=== PATIENT | male | born 1980 | race Caucasian/White ===

== ENCOUNTER 2021-10-28 12:48 | Emergency (ER) | payer MEDICAID, SELFPAY ==
--- NOTE | 2021-10-28 12:45 | RT.EKG_ITS ---
APPROVED REPORT Exam: Resting ECG Reason for Exam: chest pain Patient Location: E HR:67 bpm ECG Measurements Heart Rate 67 AXIS IA 140 P 12 QRSd 88 QRS 45 QT 540 T 11 QTc 570 Conclusion Sinus rhythm...normal P axis, V-rate 60- 99 Prolonged QT interval...QTc >500mS. Sinus. Normal axis. Prolonged QT. No STEMI. I have reviewed and interpreted ECG and agree with software generated interpretation.
[2021-10-28 12:53] VITALS: BP 135/68; PULSE 70; RESP 16; TEMP 36.9; O2SAT 95
--- NOTE | 2021-10-28 13:30 | DI.RAD_ITS ---
Exam(s) XR CHEST 2V PA LATERAL EXAM: XR CHEST 2V PA LATERAL CLINICAL HISTORY: substernal chest pain, r/o acute disease. TECHNIQUE: 2D digital imaging was performed. COMPARISON: No exams were available for comparison FINDINGS: 2 views: Heart size is normal. The mediastinum is not widened. Lungs are clear. No infiltrates nor pleural effusions. IMPRESSION: No acute pulmonary findings. DATA REPOSITORY: RADIATION DOSE DELIVERED:
[2021-10-28] MEDS: Normal Saline 1,000 ML 1000 ML IV (13:33)
[2021-10-28 13:38] LABS: Abs Immature Grans 0.06 10^3/uL (0.0-0.06); Absolute Basophil Count 0.03 10^3/uL (0.0-0.2); Absolute Eosinophil Count 0.03 10^3/uL (0.0-0.7); Absolute Neutrophil Count 12.49 10^3/uL (1.2-6.7); Basophils % 0.2; Eosinophils % 0.2; HCT 45.8 % (40.0-50.0); HGB 14.9 g/dL (13.5-17.5); Immature Grans % 0.4; Lymphocytes % 12.8; MCH 28.5 pg (27.0-33.0); MCHC 32.5 % (32.0-36.0); MCV 88 fL (80-95); MPV 10.5 fL (8.0-11.0); Monocytes % 5.8; Neutrophils % 80.6; Platelet Count 201 10^3/uL (130-400); RBC 5.23 10^6/uL (4.36-5.78); RDW 12.2 % (11.8-14.1); RDW-SD 39.1 fL
[2021-10-28 13:39] LABS: Absolute Lymphocyte Count 1.98 10^3/uL (1.2-3.4)
[2021-10-28] MEDS: Famotidine 20 MG/2 ML VIAL IVP (13:41)
[2021-10-28] MEDS: Sucralfate 1 GM TAB PO (13:41)
[2021-10-28 13:54] LABS: ALT 31 U/L (16-63); AST 25 U/L (15-37); Albumin 3.6 g/dL (3.4-5.0); Alkaline Phosphatase 93 U/L (46-116); Anion Gap 6.5 mmol/L (3-11); BUN 12 mg/dL (7-18); Bilirubin, Total 0.5 mg/dL (0.2-1.0); CO2 35.5 mmol/L (21.0-32.0); CREATININE 1.1 mg/dL (0.70-1.30); Calcium 9.5 mg/dL (8.5-10.1); Chloride 96 mmol/L (98-107); Glucose 179 mg/dL (74-106); Lipase 33 U/L (73-393); Magnesium 2.5 mg/dL (1.8-2.4); Potassium 3.1 mmol/L (3.5-5.1); Sodium 138 mmol/L (136-145); Total Protein 7.8 g/dL (6.4-8.2); Troponin I < 50 ng/L (<or=60)
--- NOTE | 2021-10-28 14:06 | ED.GENADUL_ITS ---
Discharge Plan Disposition Patient Disposition: HOME Condition: Improving Discharge Details Clinical Impression: Chest pain, Vomiting Primary Care Provider: Unknown,Unknown ED Provider: Charisma Bruce Home Meds and New Rx's Prescriptions: New famotidine [Pepcid] 20 mg tablet 20 mg PO DAILY Qty: 14 0RF promethazine 25 mg tablet 25 mg PO TID PRN (Reason: nausea and vomiting) Qty: 7 0RF sucralfate [Carafate] 1 gram tablet 1 gm PO QACHS Qty: 14 0RF Continued ibuprofen 800 MG tablet 800 mg PO Q8H Qty: 30 0RF methadone 5 mg/0.5 mL Syringe 110 mg PO DAILY Discharge Instructions Instructions: Chest Pain (ED), Acute Nausea and Vomiting (ED) Additional Instructions: Your lab work, EKG and imaging today is reassuring and shows no evidence of acute concerning or significant findings. You are being sent home with Phenergan to take as needed and directed for nausea and vomiting. Prescriptions for Phenergan for nausea and Carafate and Pepcid for pain have been sent electronically to your pharmacy. Follow-up with your primary care doctor in 1 week for reevaluation and for consideration for outpatient stress test if your symptoms do not improve or worsen and if indicated. Return to the emergency department with any worsening or new concerning symptoms. 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 Re ports that the vomitus has been blood-tinged and denies any large amounts of von blood. Vitals within normal limits. EKG on arrival notes a rate of 67, sinus, prolonged QT at 570, no STEMI and nondiagnostic. Patient appears comfortable and nontoxic. He has mild reproducible anterior chest wall tenderness. Lungs are clear bilaterally. Abdomen soft and nontender. Differential diagnose inclu cat gastritis, gastritis, esophagitis, GERD, PUD. History and presentation does not appear consistent with esophageal varices, boerhaave's syndrome, dissection, pancreatitis, cholecystitis, ACS, PE. PERC negative. We will place an IV, bolus IV fluids, screening labs, x-ray and give Pepcid, Carafate, Phenergan and GI cocktail and reassess. Labs and imaging reviewed. White blood cell count 15 which may be stress response in the setting of vomiting. Potassium 3.1 which was repleted. Troponin negative. Lipase within normal limits. As his chest pain has been present since yesterday and his presentation appears most likely consistent with a GI etiology, do not see an indication for repeat troponin. Chest x-ray negative. Patient reassessed and he is pain and nausea free and feels comfortable going home. We will send with Phenergan for home. Prescriptions for Phenergan, Pepcid and Carafate sent electronically to his pharmacy. Advised to follow up with the primary care doctor for re-evaluation. Usual and customary return precautions given prior to discharge. Medical Records Medical records reviewed: Yes I reviewed the patient's medical records. Imaging Data Radiologic Study: Radiologist's impression: XR Chest Exam date and time: 10/28/2021 1:48 PM Age: 40 years old Clinical indication: Other: Substernal chest pain, R/O acute disease TECHNIQUE: Imaging protocol: XR of the chest. Views: 2 views. COMPARISON: No relevant prior studies available. FINDINGS: Airway: Patent Lungs: Low lung volumes causes crowding of the bronchovascular structures. No acute interstitial or airspace disease. Pleural spaces: Unremarkable. No pleural effusion. No pneumothorax. Heart/Mediastinum: Unremarkable. No cardiomegaly. Bones/joints: No acute skeletal abnormality or aggressive osseous lesion.? IMPRESSION: No acute thoracic pathology. Lab Data Lab results reviewed: Yes I reviewed the patient's lab results. Labs: Laboratory Tests Range/Units 10/28/21 10/28/21 13:20 13:20 WBC (4.4-10.8) 10^3/uL 15.50 H RBC (4.36-5.78) 10^6/uL 5.23 Hgb (13.5-17.5) g/dL 14.9 Hct (40.0-50.0) % 45.8 MCV (80-95) fL 88 MCH (27.0-33.0) pg 28.5 MCHC (32.0-36.0) % 32.5 RDW (11.8-14.1) % 12.2 Plt Count (130-400) 10^3/uL 201 MPV (8.0-11.0) fL 10.5 Immature Gran % 0.4 Neutrophils % 80.6 Lymphocytes % 12.8 Monocytes % 5.8 Eosinophils % 0.2 Basophils % 0.2 Nucleated RBC % (0.0-0.3) % 0.0 Absolute Neutrophils (1.2-6.7) 10^3/uL 12.49 H Absolute Lymphocytes (1.2-3.4) 10^3/uL 1.98 Absolute Monocytes (0.1-0.8) 10^3/uL 0.90 H Absolute Eosinophils (0.0-0.7) 10^3/uL 0.03 Absolute Basophils (0.0-0.2) 10^3/uL 0.03 Sodium (136-145) mmol/L 138 Potassium (3.5-5.1) mmol/L 3.1 L Chloride (98-107) mmol/L 96 L Carbon Dioxide (21.0-32.0) mmol/L 35.5 H Anion Gap (3-11) mmol/L 6.5 BUN (7-18) mg/dL 12 Creatinine (0.70-1.30) mg/dL 1.1 Estimated GFR/1.73 m2 (mL/min/1.73m2) >= 60.00 Glucose (74-106) mg/dL 179 H Calcium (8.5-10.1) mg/dL 9.5 Magnesium (1.8-2.4) mg/dL 2.5 H Total Bilirubin (0.2-1.0) mg/dL 0.5 AST (15-37) U/L 25 ALT (16-63) U/L 31 Alkaline Phosphatase (46-116) U/L 93 Troponin I (<or=60) ng/L < 50 Total Protein (6.4-8.2) g/dL 7.8 Albumin (3.4-5.0) g/dL 3.6 Lipase (73-393) U/L 33 ECG Data Attestation: I personally reviewed and interpreted this ECG (s) as follows: Interpretation: rate of 67, normal axis, no STEMI. HPI General Mode of arrival: ambulatory . Date/Time Provider Initiated Documentation: 10/28/21 12:51 . Limitations to Documentation: no limitations . Information obtained by: patient . HPI Narrative: Patient is a 40-year-old male patient of former opiate abuse on methadone, gerd, and migraines presents to ED with complaint of chest pain and vomiting since yesterday. Patient states he was walking around when he developed substernal sharp chest pain. He states the pain is currently 6/10 and denies any radiation, associated shortness of breath or dizziness. He states after the chest pain started he developed vomiting which she states is in the mucous and food. He states he has vomited approximately 30 times since yesterday, the last time occurring 3 hours ago. He states he has occasionally noticed blood-tinged vomitus but denies any large amounts of von blood. He states he took Tums last night and this morning without relief. He denies any aggravating or alleviating symptoms but states he would normally does not eat much throughout the day. He states he has not eaten much since yesterday due to concern for worsening pain. He denies any fever, coughing, abdominal pain, diarrhea, recent antibiotic or recent known sick contacts. Related Data Home Medications Medication Instructions Recorded Confirmed ibuprofen 800 mg tablet 800 mg PO Q8H ##30 03/26/13 10/28/21 famotidine 20 mg tablet (Pepcid) 20 mg PO DAILY #14 tabs 10/28/21 methadone 5 mg/0.5 mL oral syringe 110 mg PO DAILY 10/28/21 10/28/21 (FOR ORAL USE ONLY) promethazine 25 mg tablet 25 mg PO TID PRN nausea and 10/28/21 vomiting #7 tabs sucralfate 1 gram tablet (Carafate) 1 gm PO QACHS #14 tabs 10/28/21 Previous Rx's Medication Instructions Recorded ibuprofen 800 mg tablet 800 mg PO Q8H ##30 03/26/13 famotidine 20 mg tablet (Pepcid) 20 mg PO DAILY #14 tabs 10/28/21 promethazine 25 mg tablet 25 mg PO TID PRN nausea and 10/28/21 vomiting #7 tabs sucralfate 1 gram tablet (Carafate) 1 gm PO QACHS #14 tabs 10/28/21 Allergies Allergy/AdvReac Type Severity Reaction Status Date / Time No Known Allergies Allergy Unverified 10/28/21 13:05 General Stated Complaint: Chest Pain ALEJANDRO: 2 Review of Systems All systems reviewed & are unremarkable except as noted in HPI and below Constitutional Constitutional: Denies chills, Denies excessive sweating, Denies fatigue, Denies fever(s), Denies weakness and Denies weight loss Eyes Eyes: Reports system reviewed and no additional complaints, except as documented and Denies blurry vision ENT Ears, Nose, Mouth, and Throat: Denies vertigo, Denies dizziness, Denies otalgia, Denies nasal congestion, Denies sore throat and Denies throat swelling Cardiovascular Cardiovascular: Reports chest pain, Denies syncope, Denies rapid heart rate and Denies dyspnea Respiratory Respiratory: Denies chest congestion, Denies cough, Denies pain on inspiration and Denies dyspnea Gastrointestinal Gastrointestinal: Denies abdominal pain, Denies diarrhea, Reports nausea and Reports vomiting Genitourinary Genitourinary: Denies hematuria, Denies dysuria and Denies flank pain Musculoskeletal Musculoskeletal: Denies back pain and Denies joint swelling Integumentary/Breasts Skin/Breast: Denies lesions and Denies rash Neurologic Neurologic: Denies behavioral changes, Denies confusion, Denies vertigo, Denies dizziness, Denies syncope, Denies localized weakness and Denies weakness Psychiatric Psychiatric: Denies behavioral changes, Denies confusion and Denies depression Endocrine Endocrine: Denies excessive sweating and Denies fatigue Hematologic/Lymphatic Hematologic/Lymphatic: Denies easy bruising and Denies lymphadenopathy Allergic/Immunologic Allergic/Immunologic: Denies throat swelling PFSH All Active Problems (Updated 10/28/21 @ 15:21 by Charisma Bruce DO) Chest pain (Acute) Vomiting (Acute) Medical History (Updated 10/28/21 @ 15:21 by Charisma Bruce DO) GERD (gastroesophageal reflux disease) Migraine Narcotic abuse in remission Surgical History (Updated 10/28/21 @ 14:08 by Charisma Bruce DO) History of ankle surgery Hx of cholecystectomy Social History Smoking/Tobacco Use Status: Current every day Smoking risk assessment performed?: Yes Drug use: Occasionally Substance use type: marijuana Do you feel safe at home: Yes Do you feel safe in your relationship?: Yes Exam Const General: cooperative and healthy appearing Orientation: alert, awake and oriented x3 HENMT Head: normal to inspection Ears: hearing grossly normal bilaterally, external ears normal and TM's normal bilaterally General nose exam: external nose normal Face and sinus: normal facial exam Mouth: oral mucosae normal Teeth and gingiva: dentition normal Throat: posterior oropharynx normal Eyes General: appearance normal, both eyes and all related structures Eyelids: eyelids normal Pupils: PERRL EOM: EOM intact bilaterally Neck Neck: normal visual inspection Lymphatic: no lymphadenopathy noted Chest Chest: normal inspection of the chest Resp Effort & Inspection: normal respiratory effort and able to speak in complete sentences Auscultation: clear to auscultation bilaterally Cardio Rate: regular rate Rhythm: regular rhythm GI Inspection: normal to inspection Palpation: soft, not firm, no guarding, no hepatosplenomegaly, no masses and nontender Auscultation: normal bowel sounds Back/Spine/Pelvis Back: no CVA tenderness Skin General skin exam: no rashes or lesions noted Neuro General: patient alert and patient awake Cognition: normal cognition Speech: speech normal Gait: normal gait Motor: muscle tone normal throughout Sensory Exam: no sensory deficits noted Extrem General: normal to inspection, full ROM and capillary refill normal Psych Appearance: grossly normal Mental Status: mental status grossly normal Speech and Movement: speech and movement normal Affect: normal affect Thought Process: normal Course Vital Signs Vital signs: Vital Signs Temperature 98.4 F 10/28/21 12:53 Pulse 70 10/28/21 12:53 Respiratory Rate 16 10/28/21 12:53 Blood Pressure 135/68 10/28/21 12:53 Pulse Oximetry 95 10/28/21 12:53 Temperature 98.4 F 10/28/21 12:53 Temperature Source Skin 10/28/21 12:53 Pulse 70 10/28/21 12:53 Respiratory Rate 16 10/28/21 12:53 Respiratory Effort 10/28/21 13:23 Respiratory Depth Normal 10/28/21 13:23 Respiratory Pattern Normal 10/28/21 13:23 Blood Pressure 135/68 10/28/21 12:53 Pulse Oximetry 95 10/28/21 12:53 Oxygen Delivery Method Room Air 10/28/21 12:53 Oxygen Flow Rate 0 10/28/21 12:53 Pain Level 5 10/28/21 13:23 Comment 10/28/21 12:53 Lab/Test Results Lab/Test Results: Laboratory Tests Range/Units 10/28/21 10/28/21 13:20 13:20 WBC (4.4-10.8) 10^3/uL 15.50 H RBC (4.36-5.78) 10^6/uL 5.23 Hgb (13.5-17.5) g/dL 14.9 Hct (40.0-50.0) % 45.8 MCV (80-95) fL 88 MCH (27.0-33.0) pg 28.5 MCHC (32.0-36.0) % 32.5 RDW (11.8-14.1) % 12.2 Plt Count (130-400) 10^3/uL 201 MPV (8.0-11.0) fL 10.5 Immature Gran % 0.4 Neutrophils % 80.6 Lymphocytes % 12.8 Monocytes % 5.8 Eosinophils % 0.2 Basophils % 0.2 Nucleated RBC % (0.0-0.3) % 0.0 Absolute Neutrophils (1.2-6.7) 10^3/uL 12.49 H Absolute Lymphocytes (1.2-3.4) 10^3/uL 1.98 Absolute Monocytes (0.1-0.8) 10^3/uL 0.90 H Absolute Eosinophils (0.0-0.7) 10^3/uL 0.03 Absolute Basophils (0.0-0.2) 10^3/uL 0.03 Sodium (136-145) mmol/L 138 Potassium (3.5-5.1) mmol/L 3.1 L Chloride (98-107) mmol/L 96 L Carbon Dioxide (21.0-32.0) mmol/L 35.5 H Anion Gap (3-11) mmol/L 6.5 BUN (7-18) mg/dL 12 Creatinine (0.70-1.30) mg/dL 1.1 Estimated GFR/1.73 m2 (mL/min/1.73m2) >= 60.00 Glucose (74-106) mg/dL 179 H Calcium (8.5-10.1) mg/dL 9.5 Magnesium (1.8-2.4) mg/dL 2.5 H Total Bilirubin (0.2-1.0) mg/dL 0.5 AST (15-37) U/L 25 ALT (16-63) U/L 31 Alkaline Phosphatase (46-116) U/L 93 Troponin I (<or=60) ng/L < 50 Total Protein (6.4-8.2) g/dL 7.8 Albumin (3.4-5.0) g/dL 3.6 Lipase (73-393) U/L 33
--- NOTE | 2021-10-28 14:07 | DI.VRAD_ITS ---
PROCEDURE INFORMATION: Exam: XR Chest Exam date and time: 10/28/2021 1:48 PM Age: 40 years old Clinical indication: Other: Substernal chest pain, R/O acute disease TECHNIQUE: Imaging protocol: XR of the chest. Views: 2 views. COMPARISON: No relevant prior studies available. FINDINGS: Airway: Patent Lungs: Low lung volumes causes crowding of the bronchovascular structures. No acute interstitial or airspace disease. Pleural spaces: Unremarkable. No pleural effusion. No pneumothorax. Heart/Mediastinum: Unremarkable. No cardiomegaly. Bones/joints: No acute skeletal abnormality or aggressive osseous lesion. IMPRESSION: No acute thoracic pathology. Dictated and Authenticated by: Reese Paige MD. Ordering:EVELYNE Zafar MD
[2021-10-28] MEDS: Potassium Chloride 20 MEQ TABCR 40 MEQ PO (14:58)
[2021-10-28 15:21] VITALS: BP 109/63; PULSE 64; RESP 16; O2SAT 97
== END 2021-10-28 15:40 | disposition home or self-care (01) ==
PROVIDERS: Emergency Provider Physician Assistant
DX: R07.9 Chest pain, unspecified (principal); R11.10 Vomiting, unspecified
CPT/HCPCS: 36415; 80053; 83690; 93005; 96361; 96365; 96375; 99284; 71046; 83735; 84484; 85025; 93010

== ENCOUNTER 2025-06-02 12:13 | Emergency (ER) | payer MEDICAID, SELFPAY ==
--- NOTE | 2025-06-02 12:15 | RT.EKG_ITS ---
APPROVED REPORT Exam: Resting ECG Reason for Exam: ekg Patient Location: E HR:88 bpm ECG Measurements Heart Rate 88 AXIS UT 139 P 42 QRSd 80 QRS 42 QT 303 T 31 QTc 367 Conclusion Sinus rhythm...normal P axis, V-rate 60- 99 No Occlusion IL
[2025-06-02 12:20] VITALS: BP 130/72; PULSE 91; RESP 18; TEMP 38.6; O2SAT 83
--- NOTE | 2025-06-02 12:22 | W.ED.GENAD ---
Discharge Plan Disposition Patient Disposition: Against Medical Advice Discharge Details Clinical Impression: Community acquired pneumonia, Abnormal chest x-ray, Acute hypoxemic respiratory failure, Fever Primary Care Provider: Unknown,Unknown ED Provider: Hank Almanza Home Meds and New Rx's Prescriptions: New doxycycline hyclate 100 mg capsule 100 mg PO BID 10 Days Qty: 20 0RF amoxicillin 500 mg capsule 500 mg PO BID 10 Days Qty: 20 0RF Continued ibuprofen 800 MG tablet 800 mg PO Q8H Qty: 30 0RF methadone 5 mg/0.5 mL Syringe 110 mg PO DAILY famotidine [Pepcid] 20 mg tablet 20 mg PO DAILY Qty: 14 0RF promethazine 25 mg tablet 25 mg PO TID PRN (Reason: nausea and vomiting) Qty: 7 0RF sucralfate [Carafate] 1 gram tablet 1 gm PO QACHS Qty: 14 0RF Discharge Instructions Additional Instructions: You are seen in the emergency department for your cough. You are found to have a pneumonia. Recommended that you be hospitalized. You elected to sign out AGAINST MEDICAL ADVICE. As we discussed if you develop any worsening symptoms or would like hospitalization please return to the emergency department. There are significant risks and you certainly could stop breathing for diet. Please take these antibiotics as directed. Your EKG shows your heart is working well. Your QTc was 367 on ECG. This is within normal limits. Stand Alone Forms: Portal Information HPI General Date/Time Provider Initiated Documentation: 06/02/25 12:21. HPI Narrative: MDM This is a hypoxic and febrile 44-year-old male with bilateral infiltrates on chest x-ray most consistent with community-acquired pneumonia. Given hypoxia my plan was to obtain lab work at hospitalized the patient following venous blood gas given that he was on 2 L of supplemental oxygen. Patient was adamant that he would not want to be hospitalized. We discussed at length that there is a risk of sepsis or worsening infection. He understood these risks and his preference was to be discharged. He had decision-making capacity. I had these conversations with his son who had arrived at the end of his visit. I treated her with doxycycline and amoxicillin. He was swabbed for COVID influenza and RSV. These were all negative. His chest x-ray resulted after he had left. Radiology confirmed bilateral pulmonary opacifications. They also noted a 3 cm irregular density in the right central lung concerning for possibility of mass for which they recommended CT. I attempted to call the patient at home. Unfortunately he is number was not set up. There were no other contacts. He does not have a primary care provider. I was in touch with Rafia Vargas from care management. She noted that medical records would be able to assist in sending the patient a certified letter. I will advise the patient of this unexpected finding and the recommendation. I have also asked health supervisor [employer] to have the patient established with a primary care provider. 1. I explained the current situation and condition to the patient. 2. I explained the recommended treatment for this condition ?hospitalization 3. I explained the risk of not having the recommended treatment ?hypoxia sepsis 4. The patient understands this information has no questions, and repeated back this information. 5. The patient states that they need to leave and will return if their symptoms worsen 6. Mental status is lucid and the patient has decision-making capacity. 7. Patient is withdrawing consent for care I have given the following certified letter to health supervisor [employer] to have sent out to medical records: Certified letter from [facility] concerning radiology unexpected findings June 02, 2025 Nando Almonte 1980 [id number] Dear Kalyani AlyGage, The radiologist read your chest x-ray.? Beyond the pneumonia which we discussed there is concern that you have an abnormal area concerning for the possibility of a mass.? Radiology advises that you undergo a CT scan which is a more sensitive test.? A referral has been placed for you to have a primary care provider.? Your primary care provider can help order this CT scan.? As we discussed if you develop more shortness of breath or have any other concerns please return immediately to the emergency department where we are happy to reassess you at any point in time. Thanks very much for allowing us to participate in your care, Hank Almanza MD, FACEP Assistant Drafter, Emergency Department [facility] [phone] [Diagnostic interpretations performed by me: Per my independent interpretation chest x-ray shows: Bilateral infiltrates. Per my independent interpretation EKG shows: Narrow complex normal sinus rhythm at a rate of 88. Normal axis. Intervals within normal limits. No acute injury pattern. HPI This is a patient with a history of smoking presenting with a cold. The patient was advised by his primary care physician to seek immediate medical attention at the hospital due to concerning EKG results. He reports having a cold for the past 3 weeks, which includes symptoms of phlegm production and intermittent left-sided chest pain. The chest pain occurs occasionally and is described as a pain on the left side of the chest. He reports no history of asthma and no fever. The patient smokes cigarettes. He mentions that his condition has been improving, with previous symptoms of nasal congestion and difficulty breathing now resolved. He does not use supplemental oxygen regularly. He has not taken any [id number] medications such as Tylenol or ibuprofen today. He reports no episodes of vomiting or diarrhea but mentions a constant feeling of nausea. Exam General: Well-appearing in no acute distress speaking in complete sentences. Head: Normocephalic, atraumatic. Eye: Extraocular eye movements intact. No conjunctival injection. No scleral icterus. Ear, nose, mouth, throat: Grossly normal inspection. Normal voice, handling secretions normally. Neck: Trachea midline. Cardiovascular: Well-perfused distal extremities. Respiratory: Nonlabored respiration. Coarse breath sounds bilaterally. Gastrointestinal: Nondistended abdomen. Musculoskeletal: No edema. Moving all 4 extremities spontaneously. Skin: Normal for age and race, grossly normal temperature and turgor. No acute rash. Neurologic: Alert and appropriate, no apparent acute deficits. GCS 15. Psychiatric: Mood and manner are appropriate. Grooming and personal hygiene are appropriate. Related Data Home Medications ?Medication ?Instructions ?Recorded ?Confirmed ibuprofen 800 mg tablet 800 mg PO Q8H ##30 03/26/13 10/28/21 famotidine 20 mg tablet (Pepcid) 20 mg PO DAILY #14 tabs 10/28/21 methadone 5 mg/0.5 mL oral syringe 110 mg PO DAILY 10/28/21 10/28/21 (FOR ORAL USE ONLY) promethazine 25 mg tablet 25 mg PO TID PRN nausea and 10/28/21 vomiting #7 tabs sucralfate 1 gram tablet (Carafate) 1 gm PO QACHS #14 tabs 10/28/21 amoxicillin 500 mg capsule 500 mg PO BID 10 days #20 caps 06/02/25 doxycycline hyclate 100 mg capsule 100 mg PO BID 10 days #20 caps 06/02/25 Previous Rx's ?Medication ?Instructions ?Recorded ibuprofen 800 mg tablet 800 mg PO Q8H ##30 03/26/13 famotidine 20 mg tablet (Pepcid) 20 mg PO DAILY #14 tabs 10/28/21 promethazine 25 mg tablet 25 mg PO TID PRN nausea and 10/28/21 vomiting #7 tabs sucralfate 1 gram tablet (Carafate) 1 gm PO QACHS #14 tabs 10/28/21 amoxicillin 500 mg capsule 500 mg PO BID 10 days #20 caps 06/02/25 doxycycline hyclate 100 mg capsule 100 mg PO BID 10 days #20 caps 06/02/25 Allergies Allergy/AdvReac Type Severity Reaction Status Date / Time No Known Allergies Allergy Unverified 06/02/25 12:26 General ALEJANDRO: 2 PFSH All Active Problems (Updated 06/02/25 @ 17:14 by Hank Almanza MD) Fever (Acute) Acute hypoxemic respiratory failure (Acute) Abnormal chest x-ray (Acute) Community acquired pneumonia (Acute) Medical History (Updated 06/02/25 @ 17:14 by Hank Almanza MD) Migraine GERD (gastroesophageal reflux disease) Narcotic abuse in remission Surgical History (Updated 10/28/21 @ 14:08 by Charisma Bruce DO) History of ankle surgery Hx of cholecystectomy Social History Smoking/Tobacco Use Status: Current every day Tobacco Type: pipe Smoking risk assessment performed?: Yes Alcohol Intake: never Drug use: Occasionally Substance use type: marijuana Do you feel safe at home: Yes Do you feel safe in your relationship?: Yes
--- NOTE | 2025-06-02 12:30 | DI.RAD_ITS ---
Exam(s) XR CHEST 2V PA LATERAL EXAM: XR CHEST 2V PA LATERAL CLINICAL HISTORY: cough TECHNIQUE: 2D digital imaging was performed of the chest. Two images were obtained. PA and lateral views were obtained. COMPARISON: CR,XR XR CHEST 2V PA LATERAL from 10/28/2021 FINDINGS: MEDIASTINUM: Normal. HEART: Normal. PULMONARY VASCULATURE: Normal. LUNGS: Bilateral pulmonary opacities are present. There is a 3 cm irregular density which appears to lie in the superior segment of the right lower lobe. PLEURAL SPACE: No pleural effusion or pneumothorax. BONE:Within normal limits for the patient's age. OTHER FINDINGS:Normal. IMPRESSION: 1. Bilateral pulmonary opacities suspicious for pneumonia. 2. 3 cm irregular density in the central right lung on the AP view it appears to lie in the posterior segment of the right lower lobe. A pulmonary mass cannot be excluded in this patient. A CT scan of the chest is recommended for further characterization. DATA REPOSITORY: RADIATION DOSE DELIVERED:
[2025-06-02 12:33] VITALS: BP 130/72; PULSE 91; RESP 18; TEMP 38.6; O2SAT 83
[2025-06-02 14:09] LABS: COVID-19 PCR Negative (Negative); RSV PCR Negative (Negative)
== END 2025-06-02 13:26 | disposition left against medical advice (07) ==
PROVIDERS: Emergency Provider Emergency Medicine
DX: R50.9 Fever, unspecified; J96.01 Acute respiratory failure with hypoxia; J18.9 Pneumonia, unspecified organism; R93.89 Abnormal findings on diagnostic imaging of other specified body structures; Z53.20 Procedure and treatment not carried out because of patient's decision for unspecified reasons
CPT/HCPCS: 99285 ×2; 87637; 93005; 71046; 93010